=== PATIENT | male | born 1995 | race African-American/Black ===

== ENCOUNTER 2017-07-18 19:15 | Emergency (ER) | payer OTHER, SELFPAY ==
[2017-07-18] MEDS ORDERED: Lidocaine 1% w/Epinephrine 1:100K 20 ML VIAL ONE (20:16)
[2017-07-18] MEDS ORDERED: Lidocaine 2% PF 5 ML VIAL ONE (20:18)
[2017-07-18] MEDS ORDERED: Benzocaine/Menthol 20-0.5% 60 ML CAN ONE (20:21)
--- NOTE | 2017-07-18 20:30 | RAD ---
LEFT SHOULDER TWO VIEW 07/18/17 HISTORY: Deformity. COMPARISON: None. FINDINGS: Anterior subcoracoid left shoulder dislocation. Hill-Sachs deformity is present. IMPRESSION: Anterior subcoracoid left shoulder dislocation. POS: ALEJANDRINA
--- NOTE | 2017-07-18 21:22 | RAD ---
LEFT SHOULDER TWO VIEW 07/18/17 HISTORY: Post reduction. COMPARISON: Radiograph same day. FINDINGS: Satisfactory post reduction appearance to the left shoulder. There is a posterolateral Hill-Sachs def ormity of the humeral head. IMPRESSION: Satisfactory post reduction appearance. POS: ALEJANDRINA
== END 2017-07-18 21:40 | disposition home or self-care (01) ==
LOC: ERS 19:15
DX: S43.005A Unspecified dislocation of left shoulder joint, initial encounter (principal); W55.22XA Struck by cow, initial encounter; Y93.79 Activity, other specified sports and athletics
CPT/HCPCS: 20610; 23650; J2001

== ENCOUNTER 2019-02-01 22:21 | Emergency (ER) | payer SELFPAY ==
[~2019-02-01 22:21] MED LIST: Iopamidol 370 76% 50 ML VIAL FS ONE
[2019-02-01] MEDS ORDERED: Adacel (T-DAP) 0.5 ML SYRINGE ONE (22:49)
[2019-02-01] MEDS ORDERED: Lidocaine 1% w/Epinephrine 1:100K 20 ML VIAL ONE (22:49)
[2019-02-01 22:50] LABS: #Basophils 0.2 thou/uL (0.0-0.2); #Eosinphils 0.1 thou/uL (0.0-0.7); #Lymphocytes 4.8 thou/uL (1.20-3.40); #Neutrophils 5.1 thou/uL (1.40-6.50); %Basophils 1.4 % (0.0-1.0); %Eosinophils 0.6 % (0.0-10.0); %Lymphocytes 43.2 % (21.0-51.0); %Monocytes 8.8 % (0.0-10.0); Hemoglobin 14.7 g/dL (14.0-18.0); Mean Corpuscular HGB CONC 33.5 g/dL (32.0-36.0); Mean Corpuscular Hemoglobin 31.4 pg (27.0-31.0); Mean Corpuscular Volume 93.8 fL (78.0-98.0); Mean Platelet Volume 7.9 fL (7.4-10.4); Platelet Count 267 thou/uL (130-400); RBC Distribution Width 11.5 % (11.5-14.5); Red Blood Cell (RBC) Count 4.66 mill/uL (4.70-6.10); White Blood Cell (WBC) Count 11.1 thou/uL (4.8-10.8)
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
[2019-02-01 23:12] LABS: ALT (SGPT) 22 U/L (8-55); AST (SGOT) 29 U/L (5-34); Albumin 4.7 g/dL (3.5-5.0); Alcohol 148 mg/dL (Less than 10); Alkaline Phosphatase 75 U/L (40-110); Anion Gap 15 mmol/L (10-20); BUN (Urea Nitrogen) 15 mg/dL (8.9-20.6); Bilirubin, Total 0.7 mg/dL (0.2-1.2); Calc. Creatinine Clearance 0 mL/min (70-130); Calcium 9.3 mg/dL (7.8-10.44); Carbon Dioxide 26 mmol/L (22-29); Chloride 106 mmol/L (98-107); Estimated GFR-MDRD 83; Glucose 95 mg/dL (70-105); Potassium 4.1 mmol/L (3.5-5.1); Protein, Total 7.7 g/dL (6.0-8.3); Sodium 143 mmol/L (136-145)
== END 2019-02-02 00:12 | disposition home or self-care (01) ==
LOC: ERS 22:21
DX: S21.212A Laceration without foreign body of left back wall of thorax without penetration into thoracic cavity, initial encounter (principal); Z23 Encounter for immunization; W45.8XXA Other foreign body or object entering through skin, initial encounter
CPT/HCPCS: 36415; 71045; 71260; 80053; 80307; 83605; 85025; 86850; 86900; 86901; 90471; 90715; 96365; J0690; Q9967

== ENCOUNTER 2021-01-22 18:18 | Emergency (ER) | payer OTHER, SELFPAY ==
[2021-01-22] MEDS ORDERED: Lidocaine 1% PF 5 ML VIAL ONE (18:49)
== END 2021-01-22 20:00 | disposition home or self-care (01) ==
LOC: ERS 18:18
DX: S43.014A Anterior dislocation of right humerus, initial encounter (principal); W01.0XXA Fall on same level from slipping, tripping and stumbling without subsequent striking against object, initial encounter
CPT/HCPCS: 23650